=== PATIENT | male | born 1975 | race Caucasian/White ===

== ENCOUNTER 2019-03-12 22:27 | Observation (INO) | payer OTHER ==
[2019-03-12] MEDS ORDERED: Ondansetron 4 MG/2 ML SDV IVPUSH ONE (22:37)
[2019-03-12] MEDS ORDERED: HYDROmorphone 2 MG/ML SDV IVPUSH ONE (22:37)
[2019-03-12] MEDS ORDERED: Sodium Chloride 0.9% 1,000 ML IV SCH (22:45)
--- NOTE | 2019-03-12 22:45 | EDM.PDOC ---
ED HPI GENERAL MEDICAL PROBLEM - General Stated Complaint: STOMACH PAIN Time Seen by Provider: 03/12/19 22:41 Source of Information: Reports: Patient History Limitations: Reports: No Limitations - History of Present Illness INITIAL COMMENTS - FREE TEXT/NARRATIVE: 44 yo displayer complaining of abdominal pain x 3 days. Started with diarrhea,and vomiting,and now feels bloated,gassy and full. He took Imodium, which seemed to stop the diarrhea. No fever or urinary symptoms. he has a h/o Alexandra Fundoplication x 2. No other GI surgery. - Related Data Allergies Allergy/AdvReac Type Severity Reaction Status Date / Time No Known Allergies Allergy Verified 03/12/19 22:43 Home Meds: Home Meds NK [No Known Home Meds] 03/12/19 [History] ED ROS GENERAL - Review of Systems Review Of Systems: Comprehensive ROS is negative, except as noted in HPI. ED EXAM, GI/ABD - Physical Exam Exam: See Below Exam Limited By: No Limitations General Appearance: Alert, Mild Distress Respiratory/Chest: No Respiratory Distress Cardiovascular: Normal Peripheral Pulses GI/Abdominal Exam: Distended, Guarding, Rigid, Tender, Abnormal Bowel Sounds. No: Rebound, Mass, Splenomegaly Neurological: Alert, Oriented Psychiatric: Normal Affect Skin Exam: Warm Course - Vital Signs Last Recorded V/S: Last Vital Signs Temp 97.8 F 03/12/19 23:46 Pulse 87 03/12/19 23:46 Resp 18 03/12/19 23:46 BP 140/99 H 03/12/19 23:46 Pulse Ox 98 03/12/19 23:46 - Orders/Labs/Meds Orders: Active Orders 24 hr Category Date Time Status Abdomen Pelvis w Cont [CT] Stat Exams 03/12/19 22:36 Taken UA W/MICROSCOPIC [URIN] Stat Lab 03/13/19 00:25 Received Sodium Chloride 0.9% [Normal Saline] 1,000 ml Med 03/12/19 22:45 Active IV ASDIRECTED Sodium Chloride 0.9% [Saline Flush] Med 03/12/19 22:36 Active 10 ml FLUSH ASDIRECTED PRN Peripheral IV Insertion Adult [OM.PC] Routine Oth 03/12/19 22:36 Ordered Medication Orders Hydromorphone HCl (Dilaudid) 0.5 mg IVPUSH Q2H PRN PRN Reason: Pain (severe 7-10) Sodium Chloride (Normal Saline) 1,000 mls @ 150 mls/hr IV ASDIRECTED [facility] Last Admin: 03/12/19 23:00 Dose: 150 mls/hr Sodium Chloride (Normal Saline) 1,000 mls @ 125 mls/hr IV ASDIRECTED [facility] Ondansetron HCl (Zofran) 4 mg IV Q4H PRN PRN Reason: Nausea/Vomiting Sodium Chloride (Saline Flush) 10 ml FLUSH ASDIRECTED PRN PRN Reason: Keep Vein Open Labs: Laboratory Tests 03/12/19 03/12/19 03/12/19 Range/Units 22:50 22:50 22:50 WBC 7.3 (4.5-12.0) X10-3/uL RBC 5.55 (4.30-5.75) x10(6)uL Hgb 16.2 (13.5-17.8) g/dL Hct 47.9 (30.0-51.3) % MCV 86.3 (80-96) fL MCH 29.2 (27.7-33.6) pg MCHC 33.8 (32.2-35.4) g/dL RDW 13.1 (11.5-15.5) % Plt Count 172 (125-369) X10(3)uL MPV 8.4 (7.4-10.4) fL Neut % (Auto) 70.4 (46-82) % Lymph % (Auto) 16.9 (13-37) % [place] % (Auto) 11.0 (4-12) % Eos % (Auto) 1 (1.0-5.0) % Baso % (Auto) 1 (0-2) % Neut # (Auto) 5.1 (1.6-8.3) # Lymph # (Auto) 1.2 (0.6-5.0) # [place] # (Auto) 0.8 (0.0-1.3) # Eos # (Auto) 0.1 (0.0-0.8) # Baso # (Auto) 0.1 (0.0-0.2) # ESR (0-15) mm/hr Sodium 136 (135-145) mmol/L Potassium 3.5 (3.5-5.3) mmol/L Chloride 97 L (100-110) mmol/L Carbon Dioxide 23 (21-32) mmol/L BUN 22 H (7-18) mg/dL Creatinine 1.1 (0.70-1.30) mg/dL Est Cr Clr Drug Dosing TNP Estimated GFR (MDRD) > 60 (>60) BUN/Creatinine Ratio 20.0 (9-20) Glucose 109 (80-116) mg/dL Lactic Acid 0.9 (0.4-2.2) mmol/L Calcium 9.1 (8.6-10.2) mg/dL Total Bilirubin 0.9 (0.1-1.3) mg/dL AST 36 H (5-25) IU/L ALT 58 H (12-36) U/L Alkaline Phosphatase 63 (56-112) IU/L C-Reactive Protein (0.5-0.9) mg/dL Total Protein 8.2 H (6.0-8.0) g/dL Albumin 3.7 (3.5-5.2) g/dL Globulin 4.5 g/dL Albumin/Globulin Ratio 0.8 Amylase 50 (25-115) U/L 03/12/19 03/12/19 Range/Units 22:50 22:50 WBC (4.5-12.0) X10-3/uL RBC (4.30-5.75) x10(6)uL Hgb (13.5-17.8) g/dL Hct (30.0-51.3) % MCV (80-96) fL MCH (27.7-33.6) pg MCHC (32.2-35.4) g/dL RDW (11.5-15.5) % Plt Count (125-369) X10(3)uL MPV (7.4-10.4) fL Neut % (Auto) (46-82) % Lymph % (Auto) (13-37) % [place] % (Auto) (4-12) % Eos % (Auto) (1.0-5.0) % Baso % (Auto) (0-2) % Neut # (Auto) (1.6-8.3) # Lymph # (Auto) (0.6-5.0) # [place] # (Auto) (0.0-1.3) # Eos # (Auto) (0.0-0.8) # Baso # (Auto) (0.0-0.2) # ESR 13 (0-15) mm/hr Sodium (135-145) mmol/L Potassium (3.5-5.3) mmol/L Chloride (100-110) mmol/L Carbon Dioxide (21-32) mmol/L BUN (7-18) mg/dL Creatinine (0.70-1.30) mg/dL Est Cr Clr Drug Dosing Estimated GFR (MDRD) (>60) BUN/Creatinine Ratio (9-20) Glucose (80-116) mg/dL Lactic Acid (0.4-2.2) mmol/L Calcium (8.6-10.2) mg/dL Total Bilirubin (0.1-1.3) mg/dL AST (5-25) IU/L ALT (12-36) U/L Alkaline Phosphatase (56-112) IU/L C-Reactive Protein 12.9 H* (0.5-0.9) mg/dL Total Protein (6.0-8.0) g/dL Albumin (3.5-5.2) g/dL Globulin g/dL Albumin/Globulin Ratio Amylase (25-115) U/L Meds: Medications Generic Name Dose Route Start Last Admin Trade Name Freq PRN Reason Stop Dose Admin Hydromorphone HCl 0.5 mg 03/13/19 00:42 Dilaudid IVPUSH Q2H PRN Pain (severe 7-10) Sodium Chloride 1,000 mls @ 150 mls/hr 03/12/19 22:45 03/12/19 23:00 Normal Saline IV 150 mls/hr ASDIRECTED JAYLAN Administration Sodium Chloride 1,000 mls @ 125 mls/hr 03/13/19 00:45 Normal Saline IV ASDIRECTED JAYLAN Ondansetron HCl 4 mg 03/13/19 00:42 Zofran IV Q4H PRN Nausea/Vomiting Sodium Chloride 10 ml 03/12/19 22:36 Saline Flush FLUSH ASDIRECTED PRN Keep Vein Open Discontinued Medications Generic Name Dose Route Start Last Admin Trade Name Freq PRN Reason Stop Dose Admin Hydromorphone HCl 1 mg 03/12/19 22:37 03/12/19 23:02 Dilaudid IVPUSH 03/12/19 22:38 1 mg ONETIME ONE Administration Iopamidol 100 ml 03/12/19 22:52 03/12/19 23:16 Isovue-370 (76%) IV 03/12/19 22:53 100 ml . DIRECTED ONE Administration Ondansetron HCl 8 mg 03/12/19 22:37 03/12/19 23:04 Zofran IVPUSH 03/12/19 22:38 8 mg ONETIME ONE Administration Pantoprazole Sodium 40 mg 03/13/19 00:42 Protonix Iv IVPUSH 03/13/19 00:43 ONETIME ONE Departure - Departure Time of Disposition: 00:45 Disposition: Refer to Observation Condition: Good Clinical Impression: Small bowel obstruction - Discharge Information Sepsis Event Note - Focused Exam Vital Signs: Vital Signs Temp Pulse Resp BP Pulse Ox 03/12/19 23:46 97.8 F 87 18 140/99 H 98 Date Exam was Performed: 03/13/19 Time Exam was Performed: 00:45 - Problem List & Annotations (1) Abdominal pain SNOMED Code(s): 55482185 Code(s): R10.9 - UNSPECIFIED ABDOMINAL PAIN Status: Acute Current Visit: No Qualifiers: Abdominal location: epigastric Qualified Code(s): R10.13 - Epigastric pain (2) Flank pain SNOMED Code(s): 388121243 Code(s): R10.9 - UNSPECIFIED ABDOMINAL PAIN Status: Acute Current Visit: No (3) Small bowel obstruction SNOMED Code(s): 149125176 Code(s): K56.609 - UNSP INTESTNL OBST, UNSP TO PARTIAL VERSUS COMPLETE OBST Status: Acute Current Visit: Yes - Problem List Review Problem List Initiated/Reviewed/Updated: Yes - My Orders Last 24 Hours: My Active Orders 03/12/19 22:36 Abdomen Pelvis w Cont [CT] Stat Sodium Chloride 0.9% [Saline Flush] 10 ml FLUSH ASDIRECTED PRN Peripheral IV Insertion Adult [OM.PC] Routine 03/12/19 22:45 Sodium Chloride 0.9% [Normal Saline] 1,000 ml IV ASDIRECTED 03/13/19 00:25 UA W/MICROSCOPIC [URIN] Stat - Assessment/Plan Last 24 Hours: My Active Orders 03/12/19 22:36 Abdomen Pelvis w Cont [CT] Stat Sodium Chloride 0.9% [Saline Flush] 10 ml FLUSH ASDIRECTED PRN Peripheral IV Insertion Adult [OM.PC] Routine 03/12/19 22:45 Sodium Chloride 0.9% [Normal Saline] 1,000 ml IV ASDIRECTED 03/13/19 00:25 UA W/MICROSCOPIC [URIN] Stat Plan: Admit to surgeical service.IV fulids,CBC CMP CT,IV Dilaudid and Zofran. Dr Goldberg will see in AM.I spoke with him
[2019-03-12] MEDS ORDERED: Iopamidol 755 Mg/ML 100 ML Bottle IV ONE (22:52)
[2019-03-13] MEDS ORDERED: Pantoprazole 40 MG Vial IVPUSH ONE (00:42)
[2019-03-13] MEDS ORDERED: Ondansetron 4 MG/2 ML SDV IV PRN (00:42)
[2019-03-13] MEDS: HYDROmorphone 2 MG/ML SDV IVPUSH PRN ×3 (01:25→06:28)
[2019-03-13] MEDS: Sodium Chloride 0.9% 10 ML Syringe FLUSH PRN ×2 (01:32→03:34)
[2019-03-13] MEDS ORDERED: Lidocaine 2% HCl 6 ML JEL.PF.APP ONE (01:55)
[2019-03-13] MEDS: Sodium Chloride 0.9% 1,000 ML IV SCH ×2 (06:32→14:31)
--- NOTE | 2019-03-13 07:56 | PCM.SURGPN ---
- General Info Date of Service: 03/13/19 - Review of Systems Systems Review Comment:: Patient with partial small bowel obstruction on CT Scan. Likely secondary to adhesions from previous surgery. Improved this am. Will clamp NG - Patient Data Vitals - Most Recent: Last Vital Signs Temp 98.4 F 03/13/19 02:00 Pulse 73 03/13/19 02:00 Resp 18 03/13/19 02:00 BP 125/88 03/13/19 02:00 Pulse Ox 97 03/13/19 02:00 Weight - Most Recent: 212 lb 8 oz I&O - Last 24 Hours: Intake & Output 03/12/19 03/13/19 03/13/19 22:59 06:59 14:59 Intake Total 0 0 Output Total 0 200 Balance 0 -200 Lab Results Last 24 Hrs: Laboratory Results - last 24 hr 03/12/19 03/12/19 03/12/19 Range/Units 22:50 22:50 22:50 WBC 7.3 (4.5-12.0) X10-3/uL RBC 5.55 (4.30-5.75) x10(6)uL Hgb 16.2 (13.5-17.8) g/dL Hct 47.9 (30.0-51.3) % MCV 86.3 (80-96) fL MCH 29.2 (27.7-33.6) pg MCHC 33.8 (32.2-35.4) g/dL RDW 13.1 (11.5-15.5) % Plt Count 172 (125-369) X10(3)uL MPV 8.4 (7.4-10.4) fL Neut % (Auto) 70.4 (46-82) % Lymph % (Auto) 16.9 (13-37) % [place] % (Auto) 11.0 (4-12) % Eos % (Auto) 1 (1.0-5.0) % Baso % (Auto) 1 (0-2) % Neut # (Auto) 5.1 (1.6-8.3) # Lymph # (Auto) 1.2 (0.6-5.0) # Travis # (Auto) 0.8 (0.0-1.3) # Eos # (Auto) 0.1 (0.0-0.8) # Baso # (Auto) 0.1 (0.0-0.2) # ESR (0-15) mm/hr Sodium 136 (135-145) mmol/L Potassium 3.5 (3.5-5.3) mmol/L Chloride 97 L (100-110) mmol/L Carbon Dioxide 23 (21-32) mmol/L BUN 22 H (7-18) mg/dL Creatinine 1.1 (0.70-1.30) mg/dL Est Cr Clr Drug Dosing TNP Estimated GFR (MDRD) > 60 (>60) BUN/Creatinine Ratio 20.0 (9-20) Glucose 109 (80-116) mg/dL Lactic Acid 0.9 (0.4-2.2) mmol/L Calcium 9.1 (8.6-10.2) mg/dL Total Bilirubin 0.9 (0.1-1.3) mg/dL AST 36 H (5-25) IU/L ALT 58 H (12-36) U/L Alkaline Phosphatase 63 (56-112) IU/L C-Reactive Protein (0.5-0.9) mg/dL Total Protein 8.2 H (6.0-8.0) g/dL Albumin 3.7 (3.5-5.2) g/dL Globulin 4.5 g/dL Albumin/Globulin Ratio 0.8 Amylase 50 (25-115) U/L Urine Color (YELLOW) Urine Appearance (CLEAR) Urine pH (5.0-6.5) Ur Specific [place] (1.010-1.025) Urine Protein (NEGATIVE) mg/dL Urine Glucose (UA) (NORMAL) mg/dL Urine Ketones (NEGATIVE) mg/dL Urine Occult Blood (NEGATIVE) Urine Nitrite (NEGATIVE) Urine Bilirubin (NEGATIVE) Urine Urobilinogen (NEGATIVE) mg/dL Ur Leukocyte Esterase (NEGATIVE) Urine RBC (0-5) Urine WBC (0-5) Ur Squamous Epith Cells (NS,R,O) Urine Bacteria (NS) 03/12/19 03/12/19 03/13/19 Range/Units 22:50 22:50 00:25 WBC (4.5-12.0) X10-3/uL RBC (4.30-5.75) x10(6)uL Hgb (13.5-17.8) g/dL Hct (30.0-51.3) % MCV (80-96) fL MCH (27.7-33.6) pg MCHC (32.2-35.4) g/dL RDW (11.5-15.5) % Plt Count (125-369) X10(3)uL MPV (7.4-10.4) fL Neut % (Auto) (46-82) % Lymph % (Auto) (13-37) % [place] % (Auto) (4-12) % Eos % (Auto) (1.0-5.0) % Baso % (Auto) (0-2) % Neut # (Auto) (1.6-8.3) # Lymph # (Auto) (0.6-5.0) # Travis # (Auto) (0.0-1.3) # Eos # (Auto) (0.0-0.8) # Baso # (Auto) (0.0-0.2) # ESR 13 (0-15) mm/hr Sodium (135-145) mmol/L Potassium (3.5-5.3) mmol/L Chloride (100-110) mmol/L Carbon Dioxide (21-32) mmol/L BUN (7-18) mg/dL Creatinine (0.70-1.30) mg/dL Est Cr Clr Drug Dosing Estimated GFR (MDRD) (>60) BUN/Creatinine Ratio (9-20) Glucose (80-116) mg/dL Lactic Acid (0.4-2.2) mmol/L Calcium (8.6-10.2) mg/dL Total Bilirubin (0.1-1.3) mg/dL AST (5-25) IU/L ALT (12-36) U/L Alkaline Phosphatase (56-112) IU/L C-Reactive Protein 12.9 H* (0.5-0.9) mg/dL Total Protein (6.0-8.0) g/dL Albumin (3.5-5.2) g/dL Globulin g/dL Albumin/Globulin Ratio Amylase (25-115) U/L Urine Color Yellow (YELLOW) Urine Appearance Clear (CLEAR) Urine pH 5.0 (5.0-6.5) Ur Specific [place] 1.005 L (1.010-1.025) Urine Protein 30 H (NEGATIVE) mg/dL Urine Glucose (UA) Normal (NORMAL) mg/dL Urine Ketones Negative (NEGATIVE) mg/dL Urine Occult Blood Trace (NEGATIVE) Urine Nitrite Negative (NEGATIVE) Urine Bilirubin Small H (NEGATIVE) Urine Urobilinogen 1 H (NEGATIVE) mg/dL Ur Leukocyte Esterase Negative (NEGATIVE) Urine RBC 0-5 (0-5) Urine WBC 0-5 (0-5) Ur Squamous Epith Cells Occasional (NS,R,O) Urine Bacteria Rare H (NS) 03/13/19 03/13/19 Range/Units 06:15 06:15 WBC 5.7 (4.5-12.0) X10-3/uL RBC 4.98 (4.30-5.75) x10(6)uL Hgb 14.2 (13.5-17.8) g/dL Hct 43.1 (30.0-51.3) % MCV 86.5 (80-96) fL MCH 28.5 (27.7-33.6) pg MCHC 33.0 (32.2-35.4) g/dL RDW 13.1 (11.5-15.5) % Plt Count 152 (125-369) X10(3)uL MPV 7.9 (7.4-10.4) fL Neut % (Auto) 60.1 (46-82) % Lymph % (Auto) 23.3 (13-37) % [place] % (Auto) 14.7 H (4-12) % Eos % (Auto) 1 (1.0-5.0) % Baso % (Auto) 1 (0-2) % Neut # (Auto) 3.5 (1.6-8.3) # Lymph # (Auto) 1.3 (0.6-5.0) # [place] # (Auto) 0.8 (0.0-1.3) # Eos # (Auto) 0.1 (0.0-0.8) # Baso # (Auto) 0.0 (0.0-0.2) # ESR (0-15) mm/hr Sodium 137 (135-145) mmol/L Potassium 3.8 (3.5-5.3) mmol/L Chloride 101 (100-110) mmol/L Carbon Dioxide 25 (21-32) mmol/L BUN 18 (7-18) mg/dL Creatinine 0.9 (0.70-1.30) mg/dL Est Cr Clr Drug Dosing 109.27 Estimated GFR (MDRD) > 60 (>60) BUN/Creatinine Ratio 20.0 (9-20) Glucose 100 (80-116) mg/dL Lactic Acid (0.4-2.2) mmol/L Calcium 9.0 (8.6-10.2) mg/dL Total Bilirubin (0.1-1.3) mg/dL AST (5-25) IU/L ALT (12-36) U/L Alkaline Phosphatase (56-112) IU/L C-Reactive Protein (0.5-0.9) mg/dL Total Protein (6.0-8.0) g/dL Albumin (3.5-5.2) g/dL Globulin g/dL Albumin/Globulin Ratio Amylase (25-115) U/L Urine Color (YELLOW) Urine Appearance (CLEAR) Urine pH (5.0-6.5) Ur Specific [place] (1.010-1.025) Urine Protein (NEGATIVE) mg/dL Urine Glucose (UA) (NORMAL) mg/dL Urine Ketones (NEGATIVE) mg/dL Urine Occult Blood (NEGATIVE) Urine Nitrite (NEGATIVE) Urine Bilirubin (NEGATIVE) Urine Urobilinogen (NEGATIVE) mg/dL Ur Leukocyte Esterase (NEGATIVE) Urine RBC (0-5) Urine WBC (0-5) Ur Squamous Epith Cells (NS,R,O) Urine Bacteria (NS) Med Orders - Current: Current Medications Hydromorphone HCl (Dilaudid) 0.5 mg IVPUSH Q2H PRN PRN Reason: Pain (severe 7-10) Last Admin: 03/13/19 06:28 Dose: 0.5 mg Sodium Chloride (Normal Saline) 1,000 mls @ 150 mls/hr IV ASDIRECTED JAYLAN Last Infusion: 03/13/19 01:20 Dose: 125 mls/hr Sodium Chloride (Normal Saline) 1,000 mls @ 125 mls/hr IV ASDIRECTED JAYLAN Last Admin: 03/13/19 06:32 Dose: 125 mls/hr Influenza Virus Vaccine (Fluzone Quad [id number] Syringe) 60 mcg IM .ONCE ONE Stop: 03/13/19 10:01 Ondansetron HCl (Zofran) 4 mg IV Q4H PRN PRN Reason: Nausea/Vomiting Sodium Chloride (Saline Flush) 10 ml FLUSH ASDIRECTED PRN PRN Reason: Keep Vein Open Last Admin: 03/13/19 03:34 Dose: 10 ml Discontinued Medications Hydromorphone HCl (Dilaudid) 1 mg IVPUSH ONETIME ONE Stop: 03/12/19 22:38 Last Admin: 03/12/19 23:02 Dose: 1 mg Influenza Virus Vaccine (Pharmacy To Dose - Influenza Vaccine) 1 each IM ONETIME ONE Stop: 03/13/19 00:59 Iopamidol (Isovue-370 (76%)) 100 ml IV . DIRECTED ONE Stop: 03/12/19 22:53 Last Admin: 03/12/19 23:16 Dose: 100 ml Lidocaine HCl (Glydo) 6 ml .XX ONETIME ONE Stop: 03/13/19 01:56 Last Admin: 03/13/19 02:12 Dose: 6 ml Ondansetron HCl (Zofran) 8 mg IVPUSH ONETIME ONE Stop: 03/12/19 22:38 Last Admin: 03/12/19 23:04 Dose: 8 mg Pantoprazole Sodium (Protonix Iv) 40 mg IVPUSH ONETIME ONE Stop: 03/13/19 00:43 Last Admin: 03/13/19 01:25 Dose: 40 mg Sepsis Event Note - Evaluation Sepsis Screening Result: No Definite Risk - Focused Exam Vital Signs: Vital Signs Temp Pulse Resp BP Pulse Ox 03/13/19 02:00 98.4 F 73 18 125/88 97 03/13/19 00:42 83 16 132/90 97 03/12/19 23:46 97.8 F 87 18 140/99 H 98 Date Exam was Performed: 03/13/19 Time Exam was Performed: 07:54 - Problem List Review Problem List Initiated/Reviewed/Updated: Yes - My Orders Last 24 Hours: Active Orders 24 hr Category Date Time Status Patient Status [ADT] Routine ADT 03/13/19 00:42 Active Influenza Vaccine Charge [RC] .DISCHARGE Care 03/13/19 00:58 Active Intake and Output [RC] 06,14,22 Care 03/13/19 00:43 Active Oxygen Therapy [RC] PRN Care 03/13/19 00:42 Active VTE/DVT Education [RC] Per Unit Routine Care 03/13/19 00:42 Active Vital Signs [RC] 08,12,16,20,00,04 Care 03/13/19 00:42 Active Nothing per Oral Now Diet [DIET] Diet 03/13/19 Breakfast Active Abdomen Pelvis w Cont [CT] Stat Exams 03/12/19 22:36 Taken FLU Vacc CH5746-61(6MOS+)/PF [Fluzone Quad Med 03/13/19 10:00 Once Syringe] 60 mcg IM .ONCE ONE HYDROmorphone [Dilaudid] Med 03/13/19 00:42 Active 0.5 mg IVPUSH Q2H PRN Ondansetron [Zofran] Med 03/13/19 00:42 Active 4 mg IV Q4H PRN Sodium Chloride 0.9% [Normal Saline] 1,000 ml Med 03/12/19 22:45 Active IV ASDIRECTED Sodium Chloride 0.9% [Normal Saline] 1,000 ml Med 03/13/19 00:45 Active IV ASDIRECTED Sodium Chloride 0.9% [Saline Flush] Med 03/12/19 22:36 Active 10 ml FLUSH ASDIRECTED PRN Nasogastric Orogastric Tube Insertion [OM.PC] Urgent Oth 03/13/19 00:43 Ordered Peripheral IV Insertion Adult [OM.PC] Routine Oth 03/12/19 22:36 Ordered Resuscitation Status Routine Resus Stat 03/13/19 00:42 Ordered Medication Orders Hydromorphone HCl (Dilaudid) 0.5 mg IVPUSH Q2H PRN PRN Reason: Pain (severe 7-10) Last Admin: 03/13/19 06:28 Dose: 0.5 mg Admin: 03/13/19 03:33 Dose: 0.5 mg Admin: 03/13/19 01:25 Dose: 0.5 mg Sodium Chloride (Normal Saline) 1,000 mls @ 150 mls/hr IV ASDIRECTED JAYLAN Last Infusion: 03/13/19 01:20 Dose: 125 mls/hr Admin: 03/12/19 23:00 Dose: 150 mls/hr Sodium Chloride (Normal Saline) 1,000 mls @ 125 mls/hr IV ASDIRECTED JAYLAN Last Admin: 03/13/19 06:32 Dose: 125 mls/hr Influenza Virus Vaccine (Fluzone Quad [id number] Syringe) 60 mcg IM .ONCE ONE Stop: 03/13/19 10:01 Ondansetron HCl (Zofran) 4 mg IV Q4H PRN PRN Reason: Nausea/Vomiting Sodium Chloride (Saline Flush) 10 ml FLUSH ASDIRECTED PRN PRN Reason: Keep Vein Open Last Admin: 03/13/19 03:34 Dose: 10 ml Admin: 03/13/19 01:32 Dose: 10 ml - Assessment Assessment (Free Text/Narrative):: Partial small bowel obstruction - improving - Plan Plan (Free Text/Narrative):: Clamp NG
[2019-03-13] MEDS ORDERED: FLU Vacc QS2019-20(6MOS+)/PF 60 MCG/0.5 ML SYRINGE IM ONE (10:00)
--- NOTE | 2019-03-13 14:51 | HP ---
ADMISSION DATE: 03/13/2019 REASON FOR VISIT: Complicated abdominal pain, small-bowel obstruction. HISTORY OF PRESENT ILLNESS: Derek Vuong is a 43-year-old male, admitted through [facility]. Has been feeling poorly about 48 hours. He has some vague abdominal pain, cramps, some intermittent diarrhea, last 12 hours with progressive bloating, distension, inability to eat. He had initial Alexandra fundoplication in 2014, redo with extra intervention in 2017. Dr. Pete, first provider of record; Dr. Harris, second provider of record. He has done well since that time. Also has history of Lazo's esophagus, undergoing treatment. When admitted, things were stable. Laboratory studies were reviewed. NG tube was placed and intervention in place. LABORATORY STUDIES: CBC unremarkable. White count 7300, hemoglobin 16.2, normal indices. AST and ALT slightly elevated at 36 and 58, CRP 12.9. MEDICATIONS: Daily medication is Prilosec 20 mg 1 daily, GERD. PAST MEDICAL HISTORY: Significant for Alexandra fundoplication and repeat in 2014 and 2016. No other operative procedures, hospitalizations, unusual childhood diseases, major injuries, or fractures. 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 Nonsmoker. Minimal alcohol. No illicit drug use. No vaping. No illicit drug use. FAMILY HISTORY: Dad 70, mom 64, good health; 1 brother, 1 sister. Diabetes in uncle x2, mom's dad i.e. grandfather for him had colon cancer. REVIEW OF SYSTEMS: CONSTITUTIONAL: Feeling otherwise well other than HPI. EYES: Sees well. EARS: Hears well. OROPHARYNX: Intact dentition. CV: No chest pain. RESPIRATORY: No chronic cough. GI: Please see HPI. : Voiding comfortably. SKIN: No open sores or lesions. ENDOCRINE: No excessive thirst or urination. ALLERGIES: None. ORTHOPEDIC: Generalized joint complaints. PSYCHIATRIC: Mood stable. PHYSICAL EXAMINATION: VITAL SIGNS: 96 kg, 132/90, pulse of 83, 16, and 90%. GENERAL: Appears comfortable. HEENT: Nasogastric tube in place. Funduscopic benign. Bright TMs. Clear nasal discharge. Mouth and oropharynx clear. NECK: Benign. Thyroid small. CHEST: On auscultation, clear in all lung munguia. HEART: On auscultation, no ectopy or murmur. ABDOMEN: Benign. Laparoscopic scars healed. Little bit distension. Decreased bowel sounds. : Normal male genitalia. Testes normal size, shape, and contour. RECTAL: Deferred/declined. EXTREMITIES: Well perfused. ASSESSMENT: 1. Acute small bowel obstruction. 2. Previous Alexandra fundoplication. PLAN: NG tube in place. Dr. Goldberg saw him. Clamp the tube, be observant through the day, ice chips, comfortable care, and well being. /[id number] /LUIS
--- NOTE | 2019-03-13 17:17 | PCM.SURGPN ---
- General Info Date of Service: 03/13/19 Admission Diagnosis/Problem: Pain (From Small Bowel Obstruction) Functional Status: Reports: Pain Controlled (Pain now gone) - Review of Systems Pulmonary: Reports: No Symptoms Cardiovascular: Reports: No Symptoms Gastrointestinal: Reports: No Symptoms, Flatus, Other (Passing stool and now tolerating light diet without any nausea, bloating, or vomiting). Denies: Nausea, Vomiting Genitourinary: Reports: No Symptoms (UO still not normal but improving with increased PO fluid intake) - Patient Data Vitals - Most Recent: Last Vital Signs Temp 99.0 F 03/13/19 12:00 Pulse 78 03/13/19 12:00 Resp 16 03/13/19 12:00 BP 124/79 03/13/19 12:00 Pulse Ox 98 03/13/19 12:00 Weight - Most Recent: 212 lb 8 oz I&O - Last 24 Hours: Intake & Output 03/13/19 03/13/19 03/13/19 06:59 14:59 22:59 Intake Total 0 2000 Output Total 200 325 Balance -200 1675 Lab Results Last 24 Hrs: Laboratory Results - last 24 hr 03/12/19 03/12/19 03/12/19 Range/Units 22:50 22:50 22:50 WBC 7.3 (4.5-12.0) X10-3/uL RBC 5.55 (4.30-5.75) x10(6)uL Hgb 16.2 (13.5-17.8) g/dL Hct 47.9 (30.0-51.3) % MCV 86.3 (80-96) fL MCH 29.2 (27.7-33.6) pg MCHC 33.8 (32.2-35.4) g/dL RDW 13.1 (11.5-15.5) % Plt Count 172 (125-369) X10(3)uL MPV 8.4 (7.4-10.4) fL Neut % (Auto) 70.4 (46-82) % Lymph % (Auto) 16.9 (13-37) % [place] % (Auto) 11.0 (4-12) % Eos % (Auto) 1 (1.0-5.0) % Baso % (Auto) 1 (0-2) % Neut # (Auto) 5.1 (1.6-8.3) # Lymph # (Auto) 1.2 (0.6-5.0) # [place] # (Auto) 0.8 (0.0-1.3) # Eos # (Auto) 0.1 (0.0-0.8) # Baso # (Auto) 0.1 (0.0-0.2) # ESR (0-15) mm/hr Sodium 136 (135-145) mmol/L Potassium 3.5 (3.5-5.3) mmol/L Chloride 97 L (100-110) mmol/L Carbon Dioxide 23 (21-32) mmol/L BUN 22 H (7-18) mg/dL Creatinine 1.1 (0.70-1.30) mg/dL Est Cr Clr Drug Dosing TNP Estimated GFR (MDRD) > 60 (>60) BUN/Creatinine Ratio 20.0 (9-20) Glucose 109 (80-116) mg/dL Lactic Acid 0.9 (0.4-2.2) mmol/L Calcium 9.1 (8.6-10.2) mg/dL Total Bilirubin 0.9 (0.1-1.3) mg/dL AST 36 H (5-25) IU/L ALT 58 H (12-36) U/L Alkaline Phosphatase 63 (56-112) IU/L C-Reactive Protein (0.5-0.9) mg/dL Total Protein 8.2 H (6.0-8.0) g/dL Albumin 3.7 (3.5-5.2) g/dL Globulin 4.5 g/dL Albumin/Globulin Ratio 0.8 Amylase 50 (25-115) U/L Urine Color (YELLOW) Urine Appearance (CLEAR) Urine pH (5.0-6.5) Ur Specific [place]win (1.010-1.025) Urine Protein (NEGATIVE) mg/dL Urine Glucose (UA) (NORMAL) mg/dL Urine Ketones (NEGATIVE) mg/dL Urine Occult Blood (NEGATIVE) Urine Nitrite (NEGATIVE) Urine Bilirubin (NEGATIVE) Urine Urobilinogen (NEGATIVE) mg/dL Ur Leukocyte Esterase (NEGATIVE) Urine RBC (0-5) Urine WBC (0-5) Ur Squamous Epith Cells (NS,R,O) Urine Bacteria (NS) 0103/12/19 03/13/19 Range/Units 22:50 22:50 00:25 WBC (4.5-12.0) X10-3/uL RBC (4.30-5.75) x10(6)uL Hgb (13.5-17.8) g/dL Hct (30.0-51.3) % MCV (80-96) fL MCH (27.7-33.6) pg MCHC (32.2-35.4) g/dL RDW (11.5-15.5) % Plt Count (125-369) X10(3)uL MPV (7.4-10.4) fL Neut % (Auto) (46-82) % Lymph % (Auto) (13-37) % [place] % (Auto) (4-12) % Eos % (Auto) (1.0-5.0) % Baso % (Auto) (0-2) % Neut # (Auto) (1.6-8.3) # Lymph # (Auto) (0.6-5.0) # [place] # (Auto) (0.0-1.3) # Eos # (Auto) (0.0-0.8) # Baso # (Auto) (0.0-0.2) # ESR 13 (0-15) mm/hr Sodium (135-145) mmol/L Potassium (3.5-5.3) mmol/L Chloride (100-110) mmol/L Carbon Dioxide (21-32) mmol/L BUN (7-18) mg/dL Creatinine (0.70-1.30) mg/dL Est Cr Clr Drug Dosing Estimated GFR (MDRD) (>60) BUN/Creatinine Ratio (9-20) Glucose (80-116) mg/dL Lactic Acid (0.4-2.2) mmol/L Calcium (8.6-10.2) mg/dL Total Bilirubin (0.1-1.3) mg/dL AST (5-25) IU/L ALT (12-36) U/L Alkaline Phosphatase (56-112) IU/L C-Reactive Protein 12.9 H* (0.5-0.9) mg/dL Total Protein (6.0-8.0) g/dL Albumin (3.5-5.2) g/dL Globulin g/dL Albumin/Globulin Ratio Amylase (25-115) U/L Urine Color Yellow (YELLOW) Urine Appearance Clear (CLEAR) Urine pH 5.0 (5.0-6.5) Ur Specific [place] 1.005 L (1.010-1.025) Urine Protein 30 H (NEGATIVE) mg/dL Urine Glucose (UA) Normal (NORMAL) mg/dL Urine Ketones Negative (NEGATIVE) mg/dL Urine Occult Blood Trace (NEGATIVE) Urine Nitrite Negative (NEGATIVE) Urine Bilirubin Small H (NEGATIVE) Urine Urobilinogen 1 H (NEGATIVE) mg/dL Ur Leukocyte Esterase Negative (NEGATIVE) Urine RBC 0-5 (0-5) Urine WBC 0-5 (0-5) Ur Squamous Epith Cells Occasional (NS,R,O) Urine Bacteria Rare H (NS) 03/13/19 03/13/19 Range/Units 06:15 06:15 WBC 5.7 (4.5-12.0) X10-3/uL RBC 4.98 (4.30-5.75) x10(6)uL Hgb 14.2 (13.5-17.8) g/dL Hct 43.1 (30.0-51.3) % MCV 86.5 (80-96) fL MCH 28.5 (27.7-33.6) pg MCHC 33.0 (32.2-35.4) g/dL RDW 13.1 (11.5-15.5) % Plt Count 152 (125-369) X10(3)uL MPV 7.9 (7.4-10.4) fL Neut % (Auto) 60.1 (46-82) % Lymph % (Auto) 23.3 (13-37) % [place] % (Auto) 14.7 H (4-12) % Eos % (Auto) 1 (1.0-5.0) % Baso % (Auto) 1 (0-2) % Neut # (Auto) 3.5 (1.6-8.3) # Lymph # (Auto) 1.3 (0.6-5.0) # [place] # (Auto) 0.8 (0.0-1.3) # Eos # (Auto) 0.1 (0.0-0.8) # Baso # (Auto) 0.0 (0.0-0.2) # ESR (0-15) mm/hr Sodium 137 (135-145) mmol/L Potassium 3.8 (3.5-5.3) mmol/L Chloride 101 (100-110) mmol/L Carbon Dioxide 25 (21-32) mmol/L BUN 18 (7-18) mg/dL Creatinine 0.9 (0.70-1.30) mg/dL Est Cr Clr Drug Dosing 109.27 Estimated GFR (MDRD) > 60 (>60) BUN/Creatinine Ratio 20.0 (9-20) Glucose 100 (80-116) mg/dL Lactic Acid (0.4-2.2) mmol/L Calcium 9.0 (8.6-10.2) mg/dL Total Bilirubin (0.1-1.3) mg/dL AST (5-25) IU/L ALT (12-36) U/L Alkaline Phosphatase (56-112) IU/L C-Reactive Protein (0.5-0.9) mg/dL Total Protein (6.0-8.0) g/dL Albumin (3.5-5.2) g/dL Globulin g/dL Albumin/Globulin Ratio Amylase (25-115) U/L Urine Color (YELLOW) Urine Appearance (CLEAR) Urine pH (5.0-6.5) Ur Specific [place] (1.010-1.025) Urine Protein (NEGATIVE) mg/dL Urine Glucose (UA) (NORMAL) mg/dL Urine Ketones (NEGATIVE) mg/dL Urine Occult Blood (NEGATIVE) Urine Nitrite (NEGATIVE) Urine Bilirubin (NEGATIVE) Urine Urobilinogen (NEGATIVE) mg/dL Ur Leukocyte Esterase (NEGATIVE) Urine RBC (0-5) Urine WBC (0-5) Ur Squamous Epith Cells (NS,R,O) Urine Bacteria (NS) Med Orders - Current: Current Medications Hydromorphone HCl (Dilaudid) 0.5 mg IVPUSH Q2H PRN PRN Reason: Pain (severe 7-10) Last Admin: 03/13/19 06:28 Dose: 0.5 mg Sodium Chloride (Normal Saline) 1,000 mls @ 150 mls/hr IV ASDIRECTED JAYLAN Last Infusion: 03/13/19 01:20 Dose: 125 mls/hr Sodium Chloride (Normal Saline) 1,000 mls @ 125 mls/hr IV ASDIRECTED JAYLAN Last Admin: 03/13/19 14:31 Dose: 125 mls/hr Ondansetron HCl (Zofran) 4 mg IV Q4H PRN PRN Reason: Nausea/Vomiting Sodium Chloride (Saline Flush) 10 ml FLUSH ASDIRECTED PRN PRN Reason: Keep Vein Open Last Admin: 03/13/19 03:34 Dose: 10 ml Discontinued Medications Hydromorphone HCl (Dilaudid) 1 mg IVPUSH ONETIME ONE Stop: 03/12/19 22:38 Last Admin: 03/12/19 23:02 Dose: 1 mg Influenza Virus Vaccine (Pharmacy To Dose - Influenza Vaccine) 1 each IM ONETIME ONE Stop: 03/13/19 00:59 Influenza Virus Vaccine (Fluzone Quad Syringe) 60 mcg IM .ONCE ONE Stop: 03/13/19 10:01 Iopamidol (Isovue-370 (76%)) 100 ml IV . DIRECTED ONE Stop: 03/12/19 22:53 Last Admin: 03/12/19 23:16 Dose: 100 ml Lidocaine HCl (Glydo) 6 ml .XX ONETIME ONE Stop: 03/13/19 01:56 Last Admin: 03/13/19 02:12 Dose: 6 ml Ondansetron HCl (Zofran) 8 mg IVPUSH ONETIME ONE Stop: 03/12/19 22:38 Last Admin: 03/12/19 23:04 Dose: 8 mg Pantoprazole Sodium (Protonix Iv) 40 mg IVPUSH ONETIME ONE Stop: 03/13/19 00:43 Last Admin: 03/13/19 01:25 Dose: 40 mg Sepsis Event Note - Evaluation Sepsis Screening Result: No Definite Risk - Focused Exam Vital Signs: Vital Signs Temp Pulse Resp BP Pulse Ox 03/13/19 12:00 99.0 F 78 16 124/79 98 03/13/19 08:00 98.0 F 75 16 130/90 98 Date Exam was Performed: 03/13/19 Time Exam was Performed: 17:12 - Problem List Review Problem List Initiated/Reviewed/Updated: Yes - My Orders Last 24 Hours: Active Orders 24 hr Category Date Time Status Patient Status [ADT] Routine ADT 03/13/19 00:42 Active Ambulate [RC] ASDIRECTED Care 03/13/19 08:00 Active Influenza Vaccine Charge [RC] .DISCHARGE Care 03/13/19 00:58 Active Intake and Output [RC] 06,14,22 Care 03/13/19 00:43 Active Oxygen Therapy [RC] PRN Care 03/13/19 00:42 Active Ready for Discharge [RC] PER UNIT ROUTINE Care 03/13/19 17:11 Ordered Vital Signs [RC] 08,12,16,20,00,04 Care 03/13/19 00:42 Active Clear Liquid Diet [DIET] Diet 03/13/19 Dinner Active Abdomen Pelvis w Cont [CT] Stat Exams 03/12/19 22:36 Taken HYDROmorphone [Dilaudid] Med 03/13/19 00:42 Active 0.5 mg IVPUSH Q2H PRN Ondansetron [Zofran] Med 03/13/19 00:42 Active 4 mg IV Q4H PRN Sodium Chloride 0.9% [Normal Saline] 1,000 ml Med 03/12/19 22:45 Active IV ASDIRECTED Sodium Chloride 0.9% [Normal Saline] 1,000 ml Med 03/13/19 00:45 Active IV ASDIRECTED Sodium Chloride 0.9% [Saline Flush] Med 03/12/19 22:36 Active 10 ml FLUSH ASDIRECTED PRN NG [Nasogastric Orogastric Tube Removal] [OM.PC] Oth 03/13/19 12:37 Ordered Routine Nasogastric Orogastric Tube Insertion [OM.PC] Urgent Oth 03/13/19 08:00 Ordered Peripheral IV Insertion Adult [OM.PC] Routine Oth 03/12/19 22:36 Ordered Resuscitation Status Routine Resus Stat 03/13/19 00:42 Ordered Medication Orders Hydromorphone HCl (Dilaudid) 0.5 mg IVPUSH Q2H PRN PRN Reason: Pain (severe 7-10) Last Admin: 03/13/19 06:28 Dose: 0.5 mg Admin: 03/13/19 03:33 Dose: 0.5 mg Admin: 03/13/19 01:25 Dose: 0.5 mg Sodium Chloride (Normal Saline) 1,000 mls @ 150 mls/hr IV ASDIRECTED JAYLAN Last Infusion: 03/13/19 01:20 Dose: 125 mls/hr Admin: 03/12/19 23:00 Dose: 150 mls/hr Sodium Chloride (Normal Saline) 1,000 mls @ 125 mls/hr IV ASDIRECTED JAYLAN Last Admin: 03/13/19 14:31 Dose: 125 mls/hr Infusion: 03/13/19 14:31 Dose: 125 mls/hr Admin: 03/13/19 06:32 Dose: 125 mls/hr Ondansetron HCl (Zofran) 4 mg IV Q4H PRN PRN Reason: Nausea/Vomiting Sodium Chloride (Saline Flush) 10 ml FLUSH ASDIRECTED PRN PRN Reason: Keep Vein Open Last Admin: 03/13/19 03:34 Dose: 10 ml Admin: 03/13/19 01:32 Dose: 10 ml - Assessment Assessment (Free Text/Narrative):: Partial Small bowel obstruction - resolved - Plan Plan (Free Text/Narrative):: Discharge Liquid to Soft Diet for next 2 days then return to diet as tolerated
--- NOTE | 2019-03-14 10:57 | CONS ---
DATE OF CONSULTATION: 03/13/2019 PHYSICIAN REQUESTING CONSULT: Hari Herman MD HISTORY: This 43-year-old male began having some abdominal bloating, nausea, and diarrhea about 2 days ago. Symptoms persisted until last night when they worsened and more associated with some right-sided abdominal pain, increased bloating and because of the progression of symptoms, he presented to the emergency room. On evaluation, the patient was noted to have normal laboratory studies, but a CT scan of the abdomen showed findings consistent with a partial small bowel obstruction. At that time, the patient was admitted with NG tube suction and IV hydration. This morning, the patient feels much improved. He no longer has abdominal pain, nor does he have any abdominal bloating or nausea. During the night, NG tube output has been small at 200 mL. The patient states that he is beginning to pass a little bit of flatus, although he has not had any stools since admission. PAST MEDICAL HISTORY: Shows previous surgeries to include Alexandra fundoplication twice. He has not had any other surgical procedures. He does not have any known serious illnesses, except GERD, for which he takes Prilosec, but takes no other routine prescription medications. FAMILY HISTORY: Notable for a colon cancer in his grandfather diagnosed at approximately age 65. There is also diabetes in an uncle. PHYSICAL EXAMINATION: VITAL SIGNS: The patient is afebrile, pulse of 75, blood pressure is 130/90, weight is 212 pounds. GENERAL: The patient is alert adult male. He is in no acute distress. He moves easily in the examining room. HEENT: His head is normocephalic. No scleral icterus. HEART: Regular. LUNGS: Clear. ABDOMEN: Soft. There is currently only mild tenderness in the right abdomen. The patient relates this to a muscle pull that he had in the recent past. There is no guarding. No palpable mass. EXTREMITIES: Show no obvious deformity. IMPRESSION: Partial small bowel obstruction, likely secondary to adhesions. RECOMMENDATIONS: With the patient's clinical improvement, we will clamp NG, and if the patient tolerates this well, later on today, we will plan on removing NG and trying clear liquids. /[id number] SETH/LUIS
== END 2019-03-13 17:55 | disposition home or self-care (01) ==
LOC: EDBD 22:27 → FB.ED 22:27 → FB.MS 03-13 00:41
PROVIDERS: ADMIT Family Medicine; ATTEND Surgery
DX: K56.600 Partial intestinal obstruction, unspecified as to cause (principal); K22.70 Barrett's esophagus without dysplasia; K21.9 Gastro-esophageal reflux disease without esophagitis; Z98.890 Other specified postprocedural states; Z79.899 Other long term (current) drug therapy
CPT/HCPCS: 36415; 74177; 80048; 80053; 81001; 82150; 83605; 85025; 85651; 86140; 96361; 96374; 96375; 96376; 99283; A9270; C9113; G0378; J1170; J2405; J7030; Q9967